=== PATIENT | female | born 1960 | race Two or more races ===

== ENCOUNTER → 2017-03-06 | Day surgery (SDC) | payer BC ==
[~2017-03-06] MED LIST: IV RINGERS,LACTATED 1000ML 1,000 ML IV ONE; LIDOCAINE 2% PF Vial for OR 5 ML VIAL. ONE; PROPOFOL 20 ML IV ONE
[2017-03-06 09:57] VITALS: BP 153/69
--- NOTE | 2017-03-06 12:23 | PREOP HP ---
DATE OF SERVICE: 03/06/2017 REQUESTING PHYSICIAN: Ja Lamb MD. REASON FOR PROCEDURE: Reflux. HISTORY OF PRESENT ILLNESS: This is a 56-year-old female who presents for followup of her reflux disease. She has a history of Rafal fundoplication and had a prior EGD in 2014 that showed reflux esophagitis. She has undergone Barragan testing that showed an intact Rafal fundoplication and manometry demonstrated nutcracker esophagus. She is to undergo upper endoscopy for further evaluation. ALLERGIES: BIAXIN AND THEOPHYLLINE. PAST MEDICAL HISTORY: Significant for Helicobacter pylori and nutcracker esophagus. FAMILY MEDICAL HISTORY: Significant for stomach cancer in her father and no colon cancer. SOCIAL HISTORY: She denies tobacco. She does drink alcohol and denies IV drug abuse. MEDICATIONS: See MAR. PAST SURGICAL HISTORY: 1. Lung surgery. 2. Rafal. 3. Appendectomy. 4. Shoulder surgery. 5. Bladder sling. 6. Uterine ablation. 7. Cholecystectomy. REVIEW OF SYSTEMS: A 13-point review of systems was done. It is positive as per HPI and otherwise negative. PHYSICAL EXAMINATION: VITAL SIGNS: She is afebrile. Stable. GENERAL: She is a well-developed, well-nourished female, in no apparent distress. HEENT: Oropharynx is clear. CARDIOVASCULAR: S1, S2. LUNGS: Clear. ABDOMEN: Normoactive bowel sounds, soft, nontender, nondistended. EXTREMITIES: No edema. NEUROLOGIC: Awake, alert, oriented x 3. ASSESSMENT AND PLAN: 1. Reflux, proceed with upper endoscopy for further evaluation. Risks and benefits including bleeding, perforation ____ were explained, she has agreed to proceed. 2. History of Helicobacter pylori infection. 3. Nutcracker esophagus. Thank you for allowing me to participate in the care of this patient. PAIGE SHELL MD DR: JEREMIAS/paul JOB#: [id number] / [id number] JA Ramírez MD
--- NOTE | 2017-03-07 14:37 | PATHOLOGY ---
PATHOLOGY REPORT * * * * * * * * FINAL DIAGNOSIS: A. Small bowel biopsies: - No significant pathologic abnormalities. B. Gastric biopsies, antrum: - Chronic gastritis, mild. C. Esophageal biopsies, distal esophagus: - Segments of esophagogastric and gastric mucosa showing chronic inflammation, and segment of squamous esophageal mucosa identified. D. Esophageal biopsies, middle esophagus: - Segments of mildly hyperplastic squamous esophageal mucosa identified. COMMENT: Sections of the small bowel biopsy reveal segments of duodenal and small intestine mucosa showing focal congestion. Where best oriented, the mucosal villi appear normal. There are no sprue-like changes or significant inflammatory changes. Sections of the gastric antral biopsy show congestion and mild chronic inflammation. An immunoperoxidase stain for Helicobacter is obtained. No Helicobacter organisms are identified. Sections of the distal esophageal biopsy reveal segments of esophagogastric and gastric mucosa showing mild to moderate chronic inflammation, along with a small segment of tangentially oriented squamous esophageal mucosa. There is no evidence of Gill's change, dysplasia, or malignancy. Sections of the middle esophageal biopsy reveal segments of tangentially oriented, mildly hyperplastic squamous esophageal mucosa consistent with reflux esophagitis. There is no evidence of Gill's change, dysplasia, or malignancy. (JPM:mgr; 03/07/2017) Special Stain Performed: Immunoperoxidase stain for Helicobacter (B1) REPORT ELECTRONICALLY SIGNED BY: Wiliam Lindquist M.D. DATE/TIME: 03/07/2017 14:36 * * * * * * * * GROSS PATHOLOGY: A. Received in formalin labeled "Bon, Nahomi, small bowel biopsy," are three segments of lamb soft tissue, each measuring 0.3 cm in maximum dimension. The specimen is submitted entirely in cassette A1. B. Received in formalin labeled "antrum biopsy," are three segments of lamb soft tissue measuring from 0.2 up to 0.3 cm in maximum dimension. The specimen is submitted entirely in cassette B1. An immunoperoxidase stain for Helicobacter Pylori will be obtained. C. Received in formalin labeled "distal esophagus biopsy," are two segments of lamb soft tissue measuring 0.1 and 0.4 cm in maximum dimension. The specimen is submitted entirely in cassette C1. D. Received in formalin labeled "mid esophagus," are two segments of lamb soft tissue measuring less than 0.1 and 0.2 cm in maximum dimension. The specimen is submitted entirely in cassette D1. (JPM; 03/06/17) INITIAL CPT CODE(S): A; 75351 B; 56793, 83912 C; 56676 D; 65037 Professional services performed by [facility] at [address] [address] Technical services performed by [facility] at [address] [place] [address], [facility] [address] [address]. SPECIMEN(S) RECEIVED: A.Small bowel biopsies B.Antrum biposy C.Distal esophagus D.Mid esophagus biopsy CLINICAL HISTORY: Difficulty swallowing PATIENT: NAHOMI MALDONADO V /AGE: 1207/05/1960 (Age: 56) PATIENT #: [id number] ALT CASE #: SPECIMEN COLLECTION DATE: 03/06/2017 SPECIMEN RECEIVED DATE: 03/06/2017 [facility] - [address] [place] [address] - PHONE: [phone] * * * END OF REPORT * * *
== END | disposition home or self-care (01) ==
LOC: SURG 08:11
PROVIDERS: ATTEND Internal Medicine Gastroenterology
DX: K21.0 Gastro-esophageal reflux disease with esophagitis (principal); K31.89 Other diseases of stomach and duodenum; I10 Essential (primary) hypertension; J45.909 Unspecified asthma, uncomplicated; M19.90 Unspecified osteoarthritis, unspecified site; Z90.49 Acquired absence of other specified parts of digestive tract; Z90.710 Acquired absence of both cervix and uterus; Z87.39 Personal history of other diseases of the musculoskeletal system and connective tissue; Z88.1 Allergy status to other antibiotic agents
CPT/HCPCS: 43239; 43450; 88305; 88342; J2704; J2001